=== PATIENT | male | born 1950 | race African-American/Black ===

== ENCOUNTER 2017-05-05 15:18 | Inpatient (IN) | payer OTHER ==
[2017-05-05 15:24] VITALS: BMI 25.1
[2017-05-05] MEDS ORDERED: TORADOL 30 MG VIAL IVP ONE (15:24)
[2017-05-05] MEDS ORDERED: NS 1000 ML 1,000 ML IV ONE ×2 (15:24→17:38)
[2017-05-05] MEDS ORDERED: NS 1000 ML 1,000 ML ONE ×2 (15:25→17:30)
[2017-05-05] MEDS ORDERED: TORADOL 30 MG VIAL ONE (15:25)
[2017-05-05] MEDS ORDERED: SOLU-Medrol 125 MG VIAL ONE (15:26)
[2017-05-05] MEDS ORDERED: SOLU-Medrol 125 MG VIAL IVP ONE (15:32)
[2017-05-05] MEDS ORDERED: DUONEB 0.5 MG/3 MG NEB ONE (15:51)
--- NOTE | 2017-05-05 15:53 | DR.GENAD ---
HPI - PCP Primary Care Physician: NLD - Complaint/Symptoms Chief Complaint Doctors Comments: Patient presented with complaint of flu-like symptoms for four days associated with shortness of breath. He has a history of COPD. Chief Complaint:: PT. C/O FLU LIKE SYMTPOMS (WEAKNESS, COLD SWEATS, CHILLS, COUGH, WHEEZING, FATIGUE) X 4 DAYS. - Source History Provided: Patient, EMS - Mode of Arrival Mode of Arrival: EMS - Timing Onset of Chief Complaint: 05/01/17 PMH - PMH Past Medical History: Yes Past Medical History: COPD, Diabetes, Hypertension Past Surgical History: Yes - Family History History of Family Medical Conditions: No - Social History Does patient currently use any type of tobacco product: Yes Have you used tobacco products in the last 12 months: Yes Type of Tobacco Use: Cigarettes Does any household member use tobacco: No Alcohol Use: Occasionally Do you use any recreational Drugs:: Yes (MARIJUANA) Lives With: Alone Lives Where: Home - infectious screening In the last 2 months have you had wt loss of >10#?: NO Have you had fever, night sweats or hemotysis?: No Have you traveled outside the country in the last 6 months?: No Isolation: Standard ROS - Review of Systems Eyes: No Symptoms Reported ENTM: No Symptoms Reported Respiratoy: Moist Cough, Short of Breath, Wheezing Cardiovascular: No Symptoms Reported Gastrointestinal/Abdominal: No Symptoms Reported Genitourinary: No Symptoms Reported Neurological: No Symptoms Reported Musculoskeletal: No Symptoms Reported Integumentary: No Symptoms Reported Hematologic/Lymphatic: No Symptoms Reported Endocrine: No Symptoms Reported Psychiatric: No Symptoms Reported All Other Systems: Reviewed and Negative PE - Vital Signs Vitals: Temperature 97.8 F Pulse Rate [Left Brachial] 112 Pulse Rate 118 Respiratory Rate 21 Blood Pressure [Left Arm] 141/74 Blood Pressure 156/93 O2 Sat by Pulse Oximetry 97 - General General Appearance: Alert, In No Apparent Distress - Head Head Exam: Normal Inspection, Atraumatic - Eyes Eye exam: Normal Appearance, PERRL, EOMI - ENT ENT Exam: Normal Exam External Ear Exam: Normal External Inspection TM/Canal Exam: Bilateral Normal Nose Exam: Normal Nose Exam Mouth Exam: Normal Inspection Throat Exam: Normal Inspection - Neck Neck Exam: Normal Inspection, Full ROM - Chest Chest Inspection: Normal Inspection - Respiratory Respiratory Exam: Normal Lung Sounds Bilat Respiratory Exam: Bilateral Wheezing, Bilateral Decreased Breath Sounds - Cardiovascular Cardiovascular Exam: Tachycardia - Abdominal Exam Abdominal Exam: Normal Inspection Abdominal Tenderness: negative: RUQ, RLQ, LUQ, LLQ, Epigastrium, Suprapubic, Diffuse, Mild, Moderate, Severe, Other - Extremities Extremities Exam: Normal Inspection, Full ROM - Back Back Exam: Normal Inspection - Neurologic Neurological Exam: Alert, Oriented X3, CN II-XII Intact - Psychiatric Psychiatric Exam: Normal Affect - Skin Skin Exam: Warm, Dry Course - Reevaluation 1st: Improved ROR - Labs Reviewed Result Diagrams: 05/05/17 16:14 05/05/17 16:14 Laboratory: WBC 5.7 X10^3/uL (3.6-10.0) 05/05/17 16:14 RBC 6.74 X10^6/uL (4.7-6.0) H 05/05/17 16:14 Hgb 15.2 g/dL (13.5-18.0) 05/05/17 16:14 Hct 47.8 % (42.0-54.0) 05/05/17 16:14 MCV 71.0 fL (80.0-100.0) L 05/05/17 16:14 MCH 22.5 pg (27.0-34.0) L 05/05/17 16:14 MCHC 31.7 g/dL (33.0-35.0) L 05/05/17 16:14 RDW 16.1 % (11.6-16.5) 05/05/17 16:14 Plt Count 195 X10^3/uL (150.0-450.0) 05/05/17 16:14 Plt Count Comment Adequate (ADEQUATE) 05/05/17 16:14 MPV 7.9 fL (7.4-11.0) 05/05/17 16:14 Neut % 55.5 % (42.0-75.0) 05/05/17 16:14 Lymph % 30.4 % (21.0-51.0) 05/05/17 16:14 [place] % 13.4 % (0.0-13.0) H 05/05/17 16:14 Eos % 0.1 % (0.9-2.9) L 05/05/17 16:14 Baso % 0.6 % (0.2-1.0) 05/05/17 16:14 Neut # 3.2 x10^3/uL (2.2-4.8) 05/05/17 16:14 Lymph # 1.7 X10^3/uL (1.3-2.9) 05/05/17 16:14 [place] # 0.8 x10^3/uL (0.3-0.8) 05/05/17 16:14 Eos # 0.0 x10^3/uL (0.0-0.2) 05/05/17 16:14 Baso # 0.0 X10^3/uL (0.0-0.1) 05/05/17 16:14 Absolute Nucleated RBC 0.1 /100WBC 05/05/17 16:14 Plt Morphology Comment Normal (NORMAL) 05/05/17 16:14 RBC Morphology Abnormal (NORMAL) 05/05/17 16:14 Hypochromasia Slight A 05/05/17 16:14 Microcytosis Slight A 05/05/17 16:14 Sample Site Left radial 05/05/17 17:10 ABG pH 7.270 (7.35-7.45) L 05/05/17 17:10 ABG pCO2 63.0 mmHg (35.0-45.0) H* 05/05/17 17:10 ABG pO2 44.0 mmHg (80.0-100.0) L* 05/05/17 17:10 ABG HCO3 28.9 mmol/L (22-26) H 05/05/17 17:10 ABG O2 Saturation 72.0 % (90-100) L* 05/05/17 17:10 ABG Base Excess 0.7 mmol/L (-2.0-2.0) 05/05/17 17:10 Elliott Test Pos 05/05/17 17:10 A-a Gradient 91.0 mmHg 05/05/17 17:10 FiO2 30.000 05/05/17 17:10 Blood Gas Comments Mandi well aw 05/05/17 17:10 Sodium 138 mmol/L (136-145) 05/05/17 16:14 Corrected Sodium 139 mmol/L (136-145) 05/05/17 16:14 Potassium 4.3 mmol/L (3.5-5.1) 05/05/17 16:14 Chloride 103 mmol/L (98-107) 05/05/17 16:14 Carbon Dioxide 26.3 mmol/L (21-32) 05/05/17 16:14 BUN 15 mg/dL (7-18) 05/05/17 16:14 Creatinine 0.92 mg/dL (0.70-1.30) 05/05/17 16:14 Est GFR (MDRD) Af Amer > 60 (>60) 05/05/17 16:14 Est GFR (MDRD) Non-Af > 60 (>60) 05/05/17 16:14 Glucose 145 mg/dL (65-99) H 05/05/17 16:14 Calcium 8.2 mg/dL (8.5-10.1) L 05/05/17 16:14 Corrected Calcium 8.8 mg/dL (8.5-10.1) 05/05/17 16:14 Total Bilirubin 0.40 mg/dL (0.2-1.0) 05/05/17 16:14 AST 19 Units/L (15-37) 05/05/17 16:14 ALT 20 Units/L (12-78) 05/05/17 16:14 Alkaline Phosphatase 107 Units/L (46-116) 05/05/17 16:14 C-Reactive Protein 85.30 mg/L (0-3.0) H 05/05/17 16:14 Total Protein 7.9 g/dL (6.4-8.2) 05/05/17 16:14 Albumin 3.2 g/dL (3.4-5.0) L 05/05/17 16:14 Globulin 4.7 g/dL (2.5-4.5) H 05/05/17 16:14 Albumin/Globulin Ratio 0.7 Ratio (1.1-2.1) L 05/05/17 16:14 Influenza Type A (PCR) Negative (NEGATIVE) 05/05/17 15:24 Influenza Type B (PCR) Negative (NEGATIVE) 05/05/17 15:24 - XRAY XRAY Interpreted by: Radiologist (CT Chest w/:The heart size is normal without pericardial effusion. The throacic aorta and proximal great vessels are normal in coutour and caliber. The central airways are patent. Shotty lower mediastinal and prevascular lymph nodes are present. none pathologically enlarged. There is no hilar lymphadenopathy. There is mild upper logbe predominant centrilobular emphysema. The lungs are otherwise clear without focal consolidation or pulmoary nodule/mass. No pleural effusion or pneumothorax is identified. Limited images of the upper abdomen demonstrate no acute abnormality. There are remote healed fractures of the posterior right 6th -8th ribs with associated callus formation. No acute or aggressive osseous abnormality is identified. Impression: No acute cardioopulmonary abnormality or pulmonary nodule identified. Multiple remote right sided rib fractures with associated callus formation, which may correspond to the patient's radiographic abnormality. Mild emphysema.) - Diagnosis Discharge Problem: COPD exacerbation, Respiratory acidosis - Discharge Plan Condition: Stable - Follow ups/Referrals Follow ups/Referrals: NFD,None [Primary Care Provider] - 3 days - Instructions
[2017-05-05] MEDS ORDERED: DUONEB 0.5 MG/3 MG ONE (15:59)
[2017-05-05] MEDS ORDERED: DUONEB 0.5 MG/3 MG NEB SCH ×2 (16:00→21:00)
[2017-05-05 16:23] LABS: BASOPHILS % (AUTO) 0.6 % (0.2-1.0); EOSINOPHILS % (AUTO) 0.1 % (0.9-2.9); HEMATOCRIT 47.8 % (42.0-54.0); HEMOGLOBIN 15.2 g/dL (13.5-18.0); LYMPHOCYTES # (AUTO) 1.7 X10^3/uL (1.3-2.9); LYMPHOCYTES % (AUTO) 30.4 % (21.0-51.0); MEAN CORPUSCULAR HEMOGLOBIN 22.5 pg (27.0-34.0); MEAN CORPUSCULAR HGB CONC 31.7 g/dL (33.0-35.0); MEAN PLATELET VOLUME 7.9 fL (7.4-11.0); MONOCYTES # (AUTO) 0.8 x10^3/uL (0.3-0.8); MONOCYTES % (AUTO) 13.4 % (0.0-13.0); NEUTROPHILS # (AUTO) 3.2 x10^3/uL (2.2-4.8); NEUTROPHILS % (AUTO) 55.5 % (42.0-75.0); PLATELET COUNT 195 X10^3/uL (150.0-450.0); RED BLOOD COUNT 6.74 X10^6/uL (4.7-6.0); RED CELL DISTRIBUTION WIDTH 16.1 % (11.6-16.5); WHITE BLOOD COUNT 5.7 X10^3/uL (3.6-10.0)
--- NOTE | 2017-05-05 16:27 | RAD ---
Chest, one view Indication: Flu-like symptoms Comparison: None Findings: The heart size is normal. There is a 1 cm spiculated opacity projecting over the mid right lung. The remainder of the lungs are clear. No pleural effusion or pneumothorax is identified. No acu te osseous abnormality is seen. Impression: 1 cm spiculated opacity projecting over the mid right lung, for which dedicated CT chest is recommend ed for further evaluation. Reported By:
[2017-05-05 16:35] LABS: ALANINE AMINOTRANSFERASE 20 Units/L (12-78); ALBUMIN 3.2 g/dL (3.4-5.0); ALKALINE PHOSPHATASE 107 Units/L (46-116); ASPARTATE AMINO TRANSFERASE 19 Units/L (15-37); BLOOD UREA NITROGEN 15 mg/dL (7-18); CALCIUM 8.2 mg/dL (8.5-10.1); CARBON DIOXIDE 26.3 mmol/L (21-32); CHLORIDE 103 mmol/L (98-107); COR CA(FOR HYPOALB) 8.8 mg/dL (8.5-10.1); COR NA(FOR HYPERGLY) 139 mmol/L (136-145); CREATININE 0.92 mg/dL (0.70-1.30); SODIUM 138 mmol/L (136-145); TOTAL PROTEIN 7.9 g/dL (6.4-8.2); eGFR BLACK RACES > 60 (>60); eGFR NON BLACK RACES > 60 (>60)
[2017-05-05 16:38] LABS: HYPOCHROMASIA SLIGHT; MICROCYTOSIS SLIGHT; PLATELET MORPHOLOGY COMMENT NORMAL (NORMAL)
[2017-05-05] MEDS ORDERED: NS 100 ML IV 100 ML IV ONE (16:44)
[2017-05-05] MEDS ORDERED: MAGNESIUM SULFATE 1 GM/100 mL PREMIX 1 GM/100 ML BAG IV ONE (17:18)
--- NOTE | 2017-05-05 17:24 | CT ---
CT chest with contrast Indication: Abnormal chest radiograph Technique: Helical CT images of the chest were obtained with IV contrast. Reformatted images in the c oronal and sagittal planes were also generated for review. Comparison: Radiograph from same day Findings: The heart size is normal without pericardial effusion. The thoracic aorta and proximal grea t vessels are normal in contour and caliber. The central airways are patent. Shotty lower mediastinal and prevascular lymph nodes are present, none pathologically enlarged. There is no hilar lymphadenop athy. There is mild upper lobe predominant centrilobular emphysema. The lungs are otherwise clear without f ocal consolidation or pulmonary nodule/mass. No pleural effusion or pneumothorax is identified. Limited images of the upper abdomen demonstrate no acute abnormality. There are remote healed fractur es of the posterior right 6th-8th ribs with associated callus formation. No acute or aggressive osseo us abnormality is identified. Impression: No acute cardiopulmonary abnormality or pulmonary nodule identified. Multiple remote right-sided rib fractures with associated callus formation, which may correspond to t he patient's radiographic abnormality. Mild emphysema. Reported By:
[2017-05-05 17:36] LABS: ABG BASE EXCESS 0.7 mmol/L (-2.0-2.0); ABG HCO3 28.9 mmol/L (22-26)
[2017-05-05 17:37] LABS: ABG ALLEN TEST POS
[2017-05-05] MEDS ORDERED: CIPRO IV 400 MG PREMIX* 400 MG/200 ML IV.SOLN. IV SCH (19:00)
[2017-05-05 19:13] LABS: ABG BASE EXCESS 0.6 mmol/L (-2.0-2.0); ABG HCO3 29.4 mmol/L (22-26)
[2017-05-05 19:16] LABS: ABG ALLEN TEST POS
[2017-05-05 19:27] LABS: BASOPHILS % (AUTO) 0.5 % (0.2-1.0); HEMATOCRIT 44.8 % (42.0-54.0); HEMOGLOBIN 14.3 g/dL (13.5-18.0); LYMPHOCYTES # (AUTO) 0.6 X10^3/uL (1.3-2.9); LYMPHOCYTES % (AUTO) 8.5 % (21.0-51.0); MEAN CORPUSCULAR HEMOGLOBIN 22.4 pg (27.0-34.0); MEAN CORPUSCULAR HGB CONC 31.9 g/dL (33.0-35.0); MEAN CORPUSCULAR VOLUME 70.1 fL (80.0-100.0); MEAN PLATELET VOLUME 7.9 fL (7.4-11.0); MONOCYTES # (AUTO) 0.1 x10^3/uL (0.3-0.8); MONOCYTES % (AUTO) 1.4 % (0.0-13.0); NEUTROPHILS # (AUTO) 6.3 x10^3/uL (2.2-4.8); NEUTROPHILS % (AUTO) 89.6 % (42.0-75.0); PLATELET COUNT 209 X10^3/uL (150.0-450.0); RED BLOOD COUNT 6.39 X10^6/uL (4.7-6.0); RED CELL DISTRIBUTION WIDTH 15.7 % (11.6-16.5); WHITE BLOOD COUNT 7.1 X10^3/uL (3.6-10.0)
[2017-05-05 19:37] LABS: BLOOD UREA NITROGEN 14 mg/dL (7-18); CALCIUM 8.2 mg/dL (8.5-10.1); CHLORIDE 100 mmol/L (98-107); COR NA(FOR HYPERGLY) 136 mmol/L (136-145); CREATININE 0.86 mg/dL (0.70-1.30); SODIUM 134 mmol/L (136-145); eGFR BLACK RACES > 60 (>60); eGFR NON BLACK RACES > 60 (>60)
[2017-05-05 19:47] LABS: PLATELET MORPHOLOGY COMMENT NORMAL (NORMAL)
[2017-05-05 19:48] LABS: HYPOCHROMASIA SLIGHT; MICROCYTOSIS SLIGHT
[2017-05-05] MEDS: AMBIEN PO SCH (20:53)
[2017-05-05] MEDS: LOPRESSOR TAB 25 MG PO SCH (20:54)
[2017-05-05] MEDS: CIPRO IV 400 MG PREMIX* 400 MG/200 ML IV.SOLN. IV SCH (20:54)
[2017-05-05] MEDS: DUONEB 0.5 MG/3 MG NEB SCH (20:58)
[2017-05-05] MEDS ORDERED: AMBIEN PO SCH (21:00)
[2017-05-05] MEDS ORDERED: LOPRESSOR TAB 25 MG PO SCH (21:00)
[2017-05-05] MEDS: LINAGLIPTIN PO SCH (21:30)
[2017-05-05] MEDS: [UNRECOGNIZED DRUG - OTHER] PO SCH (21:30)
[2017-05-05] MEDS: NORCO 10/325 TAB PO SCH (21:30)
[2017-05-05] MEDS: METFORMIN HCL PO SCH (21:30)
[2017-05-05] MEDS: XANAX PO SCH (21:32)
[2017-05-05] MEDS ORDERED: NORCO 10/325 TAB PO SCH (22:00)
[2017-05-05] MEDS ORDERED: METFORMIN HCL PO SCH (22:00)
[2017-05-05] MEDS ORDERED: PATIENT'S HOME MEDICATION (Alprazolam [Xanax 1 Mg] 1 TAB) PO SCH (22:00)
[2017-05-05] MEDS ORDERED: LINAGLIPTIN PO SCH (22:00)
[2017-05-05] MEDS ORDERED: [UNRECOGNIZED DRUG - OTHER] PO SCH (22:00)
[2017-05-06] MEDS: DUONEB 0.5 MG/3 MG NEB SCH ×6 (00:48→20:16)
[2017-05-06 04:22] LABS: ABG ALLEN TEST POS; ABG HCO3 29.1 mmol/L (22-26); FRACTIONATED INSPIRED OXYGEN 50
[2017-05-06 05:09] LABS: ABG ALLEN TEST POS; ABG HCO3 28.5 mmol/L (22-26); FRACTIONATED INSPIRED OXYGEN 40
[2017-05-06] MEDS: LINAGLIPTIN PO SCH ×3 (05:43→21:20)
[2017-05-06] MEDS: METFORMIN HCL PO SCH ×3 (05:43→21:20)
[2017-05-06] MEDS: [UNRECOGNIZED DRUG - OTHER] PO SCH ×3 (05:43→21:20)
[2017-05-06] MEDS: XANAX PO SCH ×3 (05:58→21:21)
[2017-05-06] MEDS: NORCO 10/325 TAB PO SCH ×3 (05:58→21:00)
[2017-05-06] MEDS: LOPRESSOR TAB 25 MG PO SCH ×2 (08:47→20:51)
[2017-05-06] MEDS: CIPRO IV 400 MG PREMIX* 400 MG/200 ML IV.SOLN. IV SCH ×2 (08:47→20:51)
[2017-05-06] MEDS: NORVASC TAB 10 MG PO SCH (08:48)
[2017-05-06] MEDS ORDERED: NORVASC TAB 10 MG PO SCH (09:00)
[2017-05-06] MEDS ORDERED: SINGULAIR TAB 10 MG PO SCH (10:00)
[2017-05-06] MEDS: PULMICORT NEB TX 0.5 MG NEB SCH ×2 (10:07→20:16)
[2017-05-06] MEDS: SINGULAIR TAB 10 MG PO SCH ×2 (10:13→20:52)
[2017-05-06] MEDS: SOLU-Medrol 40 MG VIAL IVP SCH ×3 (11:10→21:21)
[2017-05-06] MEDS ORDERED: NS 250 ML IV 250 ML IV ONE (20:37)
[2017-05-06] MEDS: AMBIEN PO SCH (20:51)
[2017-05-07] MEDS: DUONEB 0.5 MG/3 MG NEB SCH ×6 (01:59→21:12)
[2017-05-07] MEDS ORDERED: ROBITUSSIN DM PO PRN (04:00)
[2017-05-07 06:03] LABS: BASOPHILS % (AUTO) 0.4 % (0.2-1.0); HEMATOCRIT 42.1 % (42.0-54.0); HEMOGLOBIN 13.2 g/dL (13.5-18.0); LYMPHOCYTES # (AUTO) 1.3 X10^3/uL (1.3-2.9); LYMPHOCYTES % (AUTO) 23.5 % (21.0-51.0); MEAN CORPUSCULAR HEMOGLOBIN 22.2 pg (27.0-34.0); MEAN CORPUSCULAR HGB CONC 31.5 g/dL (33.0-35.0); MEAN CORPUSCULAR VOLUME 70.6 fL (80.0-100.0); MEAN PLATELET VOLUME 8.4 fL (7.4-11.0); MONOCYTES # (AUTO) 0.7 x10^3/uL (0.3-0.8); MONOCYTES % (AUTO) 12.4 % (0.0-13.0); NEUTROPHILS # (AUTO) 3.6 x10^3/uL (2.2-4.8); NEUTROPHILS % (AUTO) 63.7 % (42.0-75.0); PLATELET COUNT 210 X10^3/uL (150.0-450.0); RED BLOOD COUNT 5.96 X10^6/uL (4.7-6.0); RED CELL DISTRIBUTION WIDTH 15.3 % (11.6-16.5); WHITE BLOOD COUNT 5.6 X10^3/uL (3.6-10.0)
[2017-05-07] MEDS: METFORMIN HCL PO SCH ×3 (06:09→22:00)
[2017-05-07] MEDS: [UNRECOGNIZED DRUG - OTHER] PO SCH ×3 (06:09→22:00)
[2017-05-07] MEDS: LINAGLIPTIN PO SCH ×3 (06:09→22:00)
[2017-05-07 06:20] LABS: HYPOCHROMASIA SLIGHT; PLATELET MORPHOLOGY COMMENT NORMAL (NORMAL)
[2017-05-07] MEDS: SOLU-Medrol 40 MG VIAL IVP SCH ×3 (06:24→21:12)
[2017-05-07] MEDS: XANAX PO SCH ×3 (06:24→21:12)
[2017-05-07] MEDS: NORCO 10/325 TAB PO SCH ×3 (06:24→21:11)
--- NOTE | 2017-05-07 06:30 | RAD ---
Chest, one-view Indication: Shortness of breath Comparison: 05/05/2017 Findings: The heart size is normal. No focal consolidation, significant effusion or pneumothorax is i dentified. No acute osseous abnormality is seen. Impression: No acute cardiopulmonary abnormality. Reported By:
[2017-05-07 06:34] LABS: ALANINE AMINOTRANSFERASE 18 Units/L (12-78); ALKALINE PHOSPHATASE 87 Units/L (46-116); ASPARTATE AMINO TRANSFERASE 15 Units/L (15-37); BLOOD UREA NITROGEN 13 mg/dL (7-18); CALCIUM 8.8 mg/dL (8.5-10.1); CARBON DIOXIDE 28.8 mmol/L (21-32); CHLORIDE 104 mmol/L (98-107); COR CA(FOR HYPOALB) 9.6 mg/dL (8.5-10.1); COR NA(FOR HYPERGLY) 142 mmol/L (136-145); CREATININE 0.89 mg/dL (0.70-1.30); SODIUM 141 mmol/L (136-145); TOTAL PROTEIN 7.5 g/dL (6.4-8.2); eGFR BLACK RACES > 60 (>60); eGFR NON BLACK RACES > 60 (>60)
[2017-05-07] MEDS: NORVASC TAB 10 MG PO SCH (08:30)
[2017-05-07] MEDS: CIPRO IV 400 MG PREMIX* 400 MG/200 ML IV.SOLN. IV SCH ×2 (08:30→21:09)
[2017-05-07] MEDS: LOPRESSOR TAB 25 MG PO SCH ×2 (08:30→21:11)
[2017-05-07] MEDS: PULMICORT NEB TX 0.5 MG NEB SCH ×2 (08:47→21:12)
[2017-05-07] MEDS ORDERED: PriLOSEC PO SCH (09:00)
[2017-05-07] MEDS ORDERED: DIOVAN TAB 160 MG PO SCH (09:00)
[2017-05-07] MEDS ORDERED: ACTOS PO SCH (10:00)
[2017-05-07] MEDS ORDERED: GLUCOPHAGE ONE (12:19)
[2017-05-07] MEDS: GLUCOPHAGE XR PO SCH ×2 (12:25→21:10)
[2017-05-07] MEDS ORDERED: NICOTINE PATCH TD ONE (14:22)
[2017-05-07] MEDS ORDERED: NICOTINE PATCH TD SCH (15:00)
[2017-05-07] MEDS: SINGULAIR TAB 10 MG PO SCH (21:10)
[2017-05-07] MEDS: AMBIEN PO SCH (21:12)
[2017-05-08 00:43] VITALS: BP 170/89
[2017-05-08] MEDS: DUONEB 0.5 MG/3 MG NEB SCH (01:48)
== END 2017-05-08 01:25 | disposition left against medical advice (07) | DRG 191 ==
LOC: ER 15:39 → ICU 18:54 → ER 19:15
PROVIDERS: ADMIT Obstetrics & Gynecology Obstetrics; ATTEND Obstetrics & Gynecology Obstetrics
DX: J44.1 Chronic obstructive pulmonary disease with (acute) exacerbation (principal); E87.2 Acidosis; R06.02 Shortness of breath; I10 Essential (primary) hypertension; E11.65 Type 2 diabetes mellitus with hyperglycemia
CPT/HCPCS: 36415; 36600; 71045; 71260; 80048; 80053; 82803; 85025; 86140; 87040; 87502; 93005; 93010; 94640; 94660; 96365; 96374; 99284; 99285; A4216; A4222; A4618; A7030; J0744; J1885; J2920; J2930; J7620; J7626